=== PATIENT | male | born 1960 | race Caucasian/White ===

== ENCOUNTER 2023-02-16 19:26 | Emergency (ER) | payer BC, SELFPAY ==
[2023-02-16 19:39] VITALS: BP 155/89; PULSE 84; RESP 18; TEMP 36.8; O2SAT 99; BMI 33.7
[2023-02-16] MEDS: TETANUS/DIPHTH/PERTUSSIS 0.5 ML SYRINGE IM (21:20)
--- NOTE | 2023-02-16 21:32 | ED.NURSE ---
suture site cleaned and bacitracin and telfa applied.
--- NOTE | 2023-02-16 21:35 | ED_ITS ---
HPI - Wound/Laceration General Date Seen: 02/16/23 Chief Complaint: Laceration/Wound Stated Complaint: Gash above left eye Time Seen by Provider: 02/16/23 19:51 Source: patient and family Mode of arrival: ambulatory Limitations: no limitations History of Present Illness HPI narrative: Patient is a 63-year-old gentleman who for after he was hit on the left side of the head by a trap throwing machine, not loss of consciousness, denies any neck pain, numbness and tingling but there is a laceration of fair size on the left side of his head just above his left eyebrow. Is horizontal in approximately 7 cm in length. This occurred approximately 60 minutes ago. Location: face Place: outdoors and other Patient tetanus UTD: No Context: accidental Associated symptoms: none Treatments prior to arrival: bandage Related Data Home Medications Medication Instructions Recorded Confirmed No Known Home Medications 02/16/23 02/16/23 Allergies Allergy/AdvReac Type Severity Reaction Status Date / Time No Known Drug Allergies Allergy Verified 02/16/23 19:42 Review of Systems Status of ROS: Reports: 10 or more systems reviewed and unremarkable except as noted in History and below [facility] Medical History Hyperlipidemia ?E78.5 - Hyperlipidemia, unspecified (ICD-10) Surgical History History of inguinal hernia repair ?Z98.890 - Other specified postprocedural states (ICD-10) ?Z87.19 - Personal history of other diseases of the digestive system (ICD-10) History of tooth extraction ?K08.409 - Partial loss of teeth, unspecified cause, unspecified class (ICD- 10) History of vasectomy ?Z98.52 - Vasectomy status (ICD-10) Social History Smoking Status: Never smoker Second hand tobacco smoke exposure: No How often do you have a drink containing alcohol: never How often do you have six or more drinks on one occasion: Never AUDIT-C Alcohol total score: 0 Non-prescribed substance use: denies use Exam Narrative: Exam Narrative: Patient is seen in room 6 she is in no apparent distress, left side is head shows laceration that is gaping, his extraocular muscles are normal, TMs are normal neck is supple full range of motion, there is no other issue noted. Wound is cleaned out with Hibiclens, irrigation is done after 1% lidocaine with epinephrine is 10 mL is infused to the wound, wound is explored found no evidence of a foreign body, is a little bit jagged, there was some devitalized tissue that was cleaned up, and straightened. 4-0 Prolene was used, to approximate the wound, x7 stitches, this resulted in good hemostasis estimated blood loss approximately 10 mL, he tolerated this well, no complications. his tetanus will be updated as it was last given in 2009. Const: Vital Signs, click to edit/add: Vital Signs - 24 hr 02/16/23 19:39 Temperature 98.2 F Pulse Rate [Right Pulse Oximeter] 84 Respiratory Rate 18 Blood Pressure [Ri ght Upper Arm] 155/89 H Pulse Oximetry 99 Oxygen Delivery Me thod Room Air Documenting provider has reviewed patient's vital signs: yes Course Vital Signs Vital signs: Initial Vital Signs Temperature 98.2 F 02/16/23 19:39 Temperature Source Temporal Artery Scan 02/16/23 19:39 Pulse Rate 84 02/16/23 19:39 Respiratory Rate 18 02/16/23 19:39 Blood Pressure 155/89 H 02/16/23 19:39 Blood Pressure Mean 111 02/16/23 19:39 Blood Pressure Position Sitting 02/16/23 19:39 Pulse Oximetry 99 02/16/23 19:39 Oxygen Delivery Method Room Air 02/16/23 19:39 Vital Signs Temperature 98.2 F 02/16/23 19:39 Pulse Rate 84 02/16/23 19:39 Respiratory Rate 18 02/16/23 19:39 Blood Pressure 155/89 H 02/16/23 19:39 Pulse Oximetry 99 02/16/23 19:39 Oxygen Delivery Method Room Air 02/16/23 19:39 Temperature 98.2 F 02/16/23 19:39 Pulse Rate 84 02/16/23 19:39 Respiratory Rate 18 02/16/23 19:39 Blood Pressure 155/89 H 02/16/23 19:39 Pulse Oximetry 99 02/16/23 19:39 Oxygen Delivery Method Room Air 02/16/23 19:39 Discharge Plan Discharge Clinical Impression: Laceration, Elevated blood pressure reading Patient Disposition: Home w/ Parent or Adult Condition: Improved Instructions: Facial Laceration (ED) Additional Instructions: Home rest sutures should come out in about 8 days time, I would suggest to go see Dr. Hammond, he is fantastic. Bacitracin daily on the wound, return if signs and symptoms of infection such as redness swelling other occur. No swimming, but showering is encouraged. After the initial bandage comes off he may not need any further bandages. Please call tomorrow and get a follow-up appointment in [address] Hammond, I believe he is likely at [place] on Mondays, he is at least 1 day a week here in [place]. Have him recheck her blood pressure when he is there. Activity Level: No Restrictions Prescriptions: No Action No Known Home Medications Follow Up/Referrals: Javi Hammond MD [Staff Physician] - Provider,Not a Local [Primary Care Provider] - Stand Alone Forms: [employer] Info Instructions
[2023-02-16 21:37] VITALS: BP 145/84; PULSE 79; RESP 18; TEMP 36.8; O2SAT 99
[2023-02-16 21:39] VITALS: BP 145/84; PULSE 79; RESP 18; TEMP 36.8
== END 2023-02-16 21:39 | disposition home or self-care (01) ==
PROVIDERS: Emergency Provider Family Medicine
DX: S01.112A Laceration without foreign body of left eyelid and periocular area, initial encounter (principal); W26.9XXA Contact with unspecified sharp object(s), initial encounter
CPT/HCPCS: 12013; 90471; 90715; 99283

== ENCOUNTER 2023-02-26 11:46 | Outpatient (CLI) | payer BC, SELFPAY | END 2023-02-26 11:47 | disposition home or self-care (01) | PROVIDERS: Visit Provider Family Medicine | DX: R03.0 Elevated blood-pressure reading, without diagnosis of hypertension (principal); E78.5 Hyperlipidemia, unspecified; Z12.5 Encounter for screening for malignant neoplasm of prostate; Z13.6 Encounter for screening for cardiovascular disorders | CPT/HCPCS: 80048; 80061; 84153; 85025 ==

== ENCOUNTER 2023-03-11 19:38 | Outpatient (CLI) | payer BC, SELFPAY ==
--- NOTE | 2023-03-18 13:07 | W.PM.SLEEP ---
Sleep Study Details Details Interpreting Provider: Mary Date of Sleep Study: 03/11/23 Sleep Study Details: STUDY TYPE:? Home ? BMI:? 34.7 ORDERING PROVIDER:? Manish INDICATION:? Concerns about sleep apnea ? SLEEP SUMMARY:? 431.8 minutes monitored RESPIRATORY SUMMARY:? AHI 77 0.1. Virtually the entire study was done in the supine position Low oxygen 63 74.2% of study oxygen less than 90%, 32.6% of study oxygen less than 80% Snoring 8.2% PERIODIC LIMB MOVEMENTS OF SLEEP:? Not recorded CARDIAC:? Ranged 60-122, mean 81.9 IMPRESSION:? Severe obstructive sleep apnea with an AHI of 77.1 Significant hypo oxygenation with 1/3 of the night of the night patient's oxygen saturation was less than 80% RECOMMENDATION: Would recommend an in-lab titration because of significant hypo oxygenation. Patient refuses could do an AutoSet CPAP at 4-18 with close follow-up. Once effective therapy is established overnight oximetry should be performed is is patient may end of qualify for nocturnal oxygen.
== END 2023-03-11 19:39 | disposition home or self-care (01) ==
LOC: SLEEP 19:39
PROVIDERS: PCP Family Medicine; Visit Provider Family Medicine
DX: G47.33 Obstructive sleep apnea (adult) (pediatric) (principal)
CPT/HCPCS: 95806

== ENCOUNTER 2025-07-26 09:56 | Outpatient (CLI) | payer BC, SELFPAY | END 2025-07-26 09:57 | disposition home or self-care (01) | PROVIDERS: PCP Family Medicine; Visit Provider Family Medicine | DX: Z00.00 Encounter for general adult medical examination without abnormal findings (principal); E78.5 Hyperlipidemia, unspecified; R97.20 Elevated prostate specific antigen [PSA]; Z12.5 Encounter for screening for malignant neoplasm of prostate | CPT/HCPCS: 80048; 80061; G0103 ==

== ENCOUNTER 2025-08-17 07:02 | Outpatient (CLI) | payer BC, SELFPAY ==
--- NOTE | 2025-08-17 07:15 | MR_ITS ---
[facility] [address] [facility] [address] Phone:?[phone] Fax:?[phone] Referring Physician Information: Javi Hammond M.D. [address] [facility] [address] Phone:?[phone] Fax:?[phone] Patient:Rayna Arevalo D.O.B:?1960 Sex:?Male Phone:? [facility] MRN:?[id number] Exam Date:?08/17/2025 EXAM:?MR PROSTATE WITHOUT AND WITH CONTRAST CLINICAL INFORMATION: Elevated PSA. COMPARISON: None TECHNICAL INFORMATION: Examination was performed on a 1.5T magnet. High- resolution T1 axial, T2 axial, T2 FSE sagittal and T2 FSE coronal images were obtained through the prostate gland and seminal vesicles. Diffusion images were obtained in the axial plane. 20 mL of Dotarem were injected with dynamic enhanced images of the prostate gland in the axial plane. T1 fat saturation sagittal and coronal images were obtained postinjection. Images were analyzed with 3-D postprocessing online under concurrent physician supervision using a separate [employer] workstation. Amount of IV contrast discarded is 0 mL. INTERPRETATION: The prostate gland measures 4.9 x 4.3 x 4.3 cm (TV x AP x SI) for an estimated volume of 45 cc. Transitional and central zones: No suspicious lesion. Peripheral zones: Wispy T2 hypointensity in the peripheral zone. Lesion 1: Location: Left mid gland peripheral zone, 5 o'clock (series 9 image [id number]. Description: Focal ill-defined mild to moderate T2 hypointensity with equivocal restricted diffusion and early enhancement. The lesion measures 1.0 x 0.8 x 0.7 cm with a volume of 0.4 mL. PI-RADS: 3 Pelvis: No flex transcapsular disease. Neurovascular bundles and seminal vesicles appear intact. No pelvic lymphadenopathy or evident bone marrow disease. CONCLUSION: * A PI-RADS 3 lesion in the left mid gland peripheral zone. * No highly suspicious PI-RADS 4 or 5 lesion. * No flex transcapsular, fermín, or skeletal disease in the pelvis. PI-RADS Assessment Categories: Score 1 = very low; clinically significant disease highly unlikely Score 2 = low; clinically significant disease is unlikely Score 3 = intermediate; clinically significant disease is equivocal Score 4 = high; clinically significant disease is likely Score 5 = very high; clinically significant disease is highly likely Electronically signed on 08/18/2025 3:23:00 PM by James Randle D.O
== END 2025-08-17 07:03 | disposition home or self-care (01) ==
LOC: MRI 07:04
PROVIDERS: PCP Family Medicine; Visit Provider Family Medicine
DX: R97.20 Elevated prostate specific antigen [PSA] (principal); E78.2 Mixed hyperlipidemia
CPT/HCPCS: 72197; A9575